=== PATIENT | female | born 1960 | race Caucasian/White ===

== ENCOUNTER → 2016-11-21 | Outpatient (CLI) | payer BC ==
[2016-11-21 17:40] LABS: THYROID STIMULATING HORMONE 2.75 uIU/ml (0.34-5.60)
[2016-11-21 17:46] LABS: FREE THYROXIN (T4) 0.61 ng/dL (0.58-1.64)
== END | disposition home or self-care (01) ==
LOC: CLAB 16:32
PROVIDERS: Specialist
DX: E03.9 Hypothyroidism, unspecified (principal)
CPT/HCPCS: 84439; 84443; 84481

== ENCOUNTER → 2017-01-07 | Outpatient (CLI) | payer BC ==
[2017-01-07 18:11] LABS: THYROID STIMULATING HORMONE 2.48 uIU/ml (0.34-5.60)
[2017-01-07 18:16] LABS: FREE T3 4.7 pg/mL (2.5-3.9)
[2017-01-07 18:17] LABS: FREE THYROXIN (T4) 0.65 ng/dL (0.58-1.64)
== END | disposition home or self-care (01) ==
LOC: CLAB 16:48
PROVIDERS: Specialist
DX: E03.9 Hypothyroidism, unspecified (principal)
CPT/HCPCS: 36415; 84439; 84443; 84481

== ENCOUNTER → 2017-02-25 | Outpatient (CLI) | payer BC ==
[2017-02-25 17:14] LABS: THYROID STIMULATING HORMONE 1.4 uIU/ml (0.34-5.60)
[2017-02-25 17:19] LABS: FREE T3 3.9 pg/mL (2.5-3.9)
[2017-02-25 17:20] LABS: FREE THYROXIN (T4) 0.82 ng/dL (0.58-1.64)
== END | disposition home or self-care (01) ==
LOC: CLAB 16:24
PROVIDERS: Specialist
DX: E03.9 Hypothyroidism, unspecified (principal)
CPT/HCPCS: 36415; 84439; 84443; 84481